=== PATIENT | female | born 2000 | race Caucasian/White ===

== ENCOUNTER 2021-12-06 20:45 | Emergency (ER) | payer OTHER ==
[~2021-12-06 20:45] MED LIST: ACIPHEX20 MG PO; MEDROL 4MG DOSEP4 MG PO; NAPROXEN500 MG PO
[2021-12-06 21:54] LABS: BILIRUBIN NEGATIVE (NEGATIVE); BLOOD NEGATIVE Ery/uL (NEGATIVE); COLOR YELLOW (YELLOW); GLUCOSE (U) NORMAL (NORMAL); LEUKOCYTES 2+ Leu/uL (NEGATIVE); NITRITE NEGATIVE (NEGATIVE); PROTEIN NEGATIVE (NEGATIVE); SPECIFIC GRAVITY <=1.005 (1.001-1.030); UROBILINOGEN 0.2 mg/dL (0.2-1.0)
[2021-12-06 21:56] LABS: CLARITY SLIGHTLY HAZY (CLEAR)
[2021-12-06 22:01] LABS: BACTERIA 1+
[2021-12-07] MEDS ORDERED: BACTRIM DS TAB1 EACH PO (00:27)
[2021-12-07] MEDS ORDERED: NORCO 5-325 TA1 EACH PO (00:27)
[2021-12-07] MEDS ORDERED: NAPROXEN500 MG PO (00:27)
[2021-12-07 00:44] LABS: BASOPHIL 0.5 % (0-2); EOSINOPHIL 2.5 % (0-5); HCT 41.2 % (37.0-47.0); HGB 13.4 g/dl (12.5-16.0); LYMPHOCYTE 30.8 % (15-48); MCH 28.2 pg (25.0-31.0); MCHC 32.5 g/dL (32.0-36.0); MCV 86.7 fL (78.0-100.0); MONOCYTE 12.5 % (0-12); MPV 10.4 fL (6.0-9.5); NEUTROPHIL 53.6 % (41-80); NRBC 0; PLT 185 K/uL (150-400); RBC 4.75 M/uL (4.20-5.40); RDW 12.7 % (11.5-14.0); WBC 7.5 K/uL (4.0-10.5)
[2021-12-07 01:02] LABS: ALBUMIN 3.7 g/dL (3.4-5.0); BILIRUBIN - TOTAL 0.2 mg/dL (0.2-1.0); BUN/CREAT RATIO (CALC) 13.3 RATIO; CREATININE 0.6 mg/dL (0.51-0.95); GLOBULIN (CALCULATION) 3.6 g/dL; TOTAL PROTEIN 7.3 g/dL (6.4-8.2)
== END 2021-12-07 00:48 | disposition home or self-care (01) ==
LOC: FER 20:45
PROVIDERS: Internal Medicine; Nurse Practitioner Family
DX: N39.0 Urinary tract infection, site not specified (principal); Z88.0 Allergy status to penicillin; Z28.310 Unvaccinated for COVID-19
CPT/HCPCS: 36415; 80053; 81001; 83690; 84145; 84702; 85025; J0696